=== PATIENT | male | born 1955 | race Caucasian/White ===

== ENCOUNTER → 2020-08-06 11:59 | Outpatient (CLI) | payer OTHER, SELFPAY ==
--- NOTE | ~2020-08-06 | XR_ITS ---
EXAMINATION: XR elbow RT min 3V DATE: 08/06/2020 12:46 INDICATION: Posterior right elbow pain, swelling and stiffness with limited range of motion TECHNIQUE: Anteroposterior, two oblique and lateral views of the right elbow were obtained. COMPARISON: None. FINDINGS: Alignment is normal. No fracture. Mild osteoarthritis at the right elbow with small marginal osteophy jorge and mild nonuniform joint space narrowing most prominent at the proximal radioulnar articulation. Small loose osteochondral body at the anterior recess of the joint space near the coronoid fossa. Ti ny enthesopathic ossicle along the lateral epicondyle. Soft tissues are otherwise unremarkable. IMPRESSION: 1. Mild osteoarthritis at the right elbow with small loose osteochondral body near the coronoid fossa . 2. Tiny enthesopathic ossicle at the lateral epicondylar origin of the common extensor tendon wad. Reviewed, dictated and finalized at location A. IMPRESSION: 1. Mild osteoarthritis at the right elbow with small loose osteochondral body n ear the coronoid fossa. 2. Tiny enthesopathic ossicle at the lateral epicondylar origin of the common e xtensor tendon wad.
== END ==
PROVIDERS: PCP Family Medicine; Visit Provider Family Medicine
DX: M19.021 Primary osteoarthritis, right elbow (principal)
CPT/HCPCS: 73080

== ENCOUNTER 2022-07-08 01:54 | Day surgery (SDC) | payer OTHER, SELFPAY ==
[2022-06-24 13:03] VITALS: BMI 32.5
[2022-07-08 06:16] VITALS: BP 122/85; PULSE 58; RESP 16; TEMP 36; O2SAT 98; BMI 32.3
[2022-07-08] MEDS: LACTATED RINGERS 1,000 ML 150 ML IV CONT (06:26)
--- NOTE | 2022-07-08 07:17 | WPDANESEPPF ---
Anes - Initial Pre Proc Eval Procedure: Operation Date: 07/08/22 07:30 Proposed Procedures p Colonoscopy - Power Mac MD Date/Time: 07/08/22 07:17 Surgeon: Power Mac MD Pre Op Diagnosis: hx colon polyps Patient Data Age: 66 Gender: M Height: 1.88 m Weight: 114.1 kg Last Vital Signs Temp 96.8 F L 07/08/22 06:16 Pulse 58 L 07/08/22 06:16 Resp 16 07/08/22 06:16 BP 122/85 07/08/22 06:16 Pulse Ox 98 07/08/22 06:16 O2 Del Method Room Air 07/08/22 06:16 Allergies Allergy/AdvReac Type Severity Reaction Status Date / Time No Known Allergies Allergy Mild Verified 07/08/22 06:15 Home Medications Medication Instructions Recorded Confirmed Type diclofenac sodium 1 % topical gel 2 g topical DAILY 08/06/20 07/08/22 History (Voltaren Arthritis Pain) loratadine 10 mg tablet (Claritin) 10 mg PO DAILY 08/06/20 07/08/22 History cholecalciferol (vitamin D3) 50 50 mcg PO BID 06/01/22 07/08/22 History mcg (2,000 unit) capsule naproxen 500 mg tablet 500 mg PO DAILY PRN pain 06/01/22 07/08/22 History tadalafil 20 mg tablet (Cialis) 20 mg PO DAILY PRN sexual activity 06/01/22 07/08/22 Rx #30 tabs atorvastatin 10 mg tablet (Lipitor) 10 mg PO QHS #90 tabs 06/07/22 07/08/22 Rx Patient hx anesthesia problems: none Family hx anesthesia problems: none Results Review: All pre-operative results and documents have been reviewed as part of the pre-operative evaluation. [facility] Past Medical History Medical History Arthritis of elbow, right, degenerative Chronic pain of both knees Chronic pain of left knee Dyslipidemia Environmental allergies Erectile dysfunction History of colon polyps Surgical History Surgical History History of bilateral inguinal hernia repair x 4 b/l - 1980s and History of mandibular surgery 1974 - correction of under bite History of umbilical hernia repair 1999 Social History Social History Smoking status: Never smoker Second hand tobacco smoke exposure: No Alcohol intake: current Drinks per week: 3 Substance use: current Substance use type: marijuana Other substance usage details: gummies Last use: sometimes Lack of Transportation: No Lack of Food: Never True Current Housing: I Have Housing Concerned About Future Housing: No Difficulty Paying Gas/Electric Bills: No Difficulty Paying for Meds: No Currently Unemployed: No Education: High School Diploma/GED Difficulty w/ Childcare or Family Care: No Living arrangements: with family Occupation/Education: retired Gender identity (if verbalized by the patient): Male Spiritual care concerns: No Anes - Eval Final PreProcedure Day of Procedure 07/08/22 07:17 Patient weight: obese Heart: regular rate and rhythm Lungs: clear to auscultation Airway: Mallampati scale class II Neurological: alert and oriented Last oral intake: >/= 8 hours ASA classification: II Emergent: no Anesthetic plan: proceed Anesthesia type and monitoring: general GIVS and standard monitoring Results Review: All pre-operative results and documents have been reviewed as part of the pre-operative evaluation. Informed Consent: The patient's anesthetic plan and its attendant risks and benefits were discussed with the patient/family/POA. Questions were solicited and answers provided to the satisfaction of the patient/family/POA.
--- NOTE | 2022-07-08 07:22 | PM.HPGS ---
History of Present Illness History of Present Illness Consent: Risks, benefits, and alternatives have been discussed and questions answered. Patient agrees to proceed with procedure. Chief complaint: hx colon polyps Narrative: Guero Dickerson is a 66 year old male Presents for screening colonoscopy. Patient's current weight appetite and bowel movements are normal. Patient denies abdominal pain. He has had no bleeding. Family history is noncontributory. Patient reports many years ago he had a polyp removed during a colonoscopy in [place]. Most recent colonoscopy 5 years ago was unremarkable. Review of Systems Review of Systems: Review of systems noncontributory. [facility] Past Medical History Medical History Arthritis of elbow, right, degenerative Chronic pain of both knees Chronic pain of left knee Dyslipidemia Environmental allergies Erectile dysfunction History of colon polyps Surgical History Surgical History History of bilateral inguinal hernia repair x 4 b/l - and History of mandibular surgery 1974 - correction of under bite History of umbilical hernia repair 1999 Social History Social History Smoking status: Never smoker Second hand tobacco smoke exposure: No Alcohol intake: current Drinks per week: 3 Substance use: current Substance use type: marijuana Other substance usage details: gummies Last use: sometimes Lack of Transportation: No Lack of Food: Never True Current Housing: I Have Housing Concerned About Future Housing: No Difficulty Paying Gas/Electric Bills: No Difficulty Paying for Meds: No Currently Unemployed: No Education: High School Diploma/GED Difficulty w/ Childcare or Family Care: No Living arrangements: with family Occupation/Education: retired Gender identity (if verbalized by the patient): Male Spiritual care concerns: No Meds Home Medications and Allergies Home Medications Medication Instructions Recorded Confirmed Type diclofenac sodium 1 % topical gel 2 g topical DAILY 08/06/20 07/08/22 History (Voltaren Arthritis Pain) loratadine 10 mg tablet (Claritin) 10 mg PO DAILY 08/06/20 07/08/22 History cholecalciferol (vitamin D3) 50 50 mcg PO BID 06/01/22 07/08/22 History mcg (2,000 unit) capsule naproxen 500 mg tablet 500 mg PO DAILY PRN pain 06/01/22 07/08/22 History tadalafil 20 mg tablet (Cialis) 20 mg PO DAILY PRN sexual activity 06/01/22 07/08/22 Rx #30 tabs atorvastatin 10 mg tablet (Lipitor) 10 mg PO QHS #90 tabs 06/07/22 07/08/22 Rx Allergies Allergy/AdvReac Type Severity Reaction Status Date / Time No Known Allergies Allergy Mild Verified 07/08/22 06:15 Vital Signs Vital Signs - 24 hr 07/08/22 06:16 Temperature 96.8 F L Pulse Rate 58 L Respiratory Rate 16 Blood Pressure 122/85 Pulse Oximetry 98 Oxygen Delivery Room Air Exam Narrative: Physical exam reveals patient to be alert. Vital signs stable. HEENT exam is unremarkable. Patient is anicteric. Lungs are clear to auscultation and percussion. Heart is without murmur or extra sounds. Abdomen bowel sounds are present soft nontender with no organomegaly. Digital external rectal exam is normal. Assessment and Plan Assessment and plan (1) Encounter for screening colonoscopy: Code(s): Z12.11 - Encounter for screening for malignant neoplasm of colon Status: Acute Assessment and Plan: Patient presents today for screening colonoscopy. He has very distant history of colon polyps. Further recommendations may be given after endoscopy.
[2022-07-08 07:52] VITALS: BP 126/86; PULSE 61; RESP 20; O2SAT 96
[2022-07-08 08:02] VITALS: BP 133/80; PULSE 56; RESP 18; O2SAT 99
[2022-07-08 08:12] VITALS: BP 133/87; PULSE 55; RESP 19; O2SAT 97
== END 2022-07-08 08:24 | disposition home or self-care (01) ==
PROVIDERS: PCP Family Medicine; Visit Provider Internal Medicine Gastroenterology
PROC: 0DJD8ZZ Inspection of Lower Intestinal Tract, Via Natural or Artificial Opening Endoscopic (ICD-10-PCS; CPT 45378; principal; 2022-07-08 07:30)
DX: Z12.11 Encounter for screening for malignant neoplasm of colon (principal); K63.5 Polyp of colon; K64.8 Other hemorrhoids; E78.5 Hyperlipidemia, unspecified; F12.90 Cannabis use, unspecified, uncomplicated
CPT/HCPCS: 45385; 88305; J2704; J7120

== ENCOUNTER 2023-05-10 10:59 | Outpatient (CLI) | payer OTHER, SELFPAY ==
[2023-05-10 13:12] LABS: Appearance Urine Clear (Clear); Bilirubin Urine Negative (Negative); Blood Urine Negative (Negative); Color Urine Yellow (Yellow); Glucose Urine UA Negative (Negative); Ketones Urine Negative (Negative); Leukocyte Esterase Ur Negative LEU/UL (Negative); Nitrate Urine Negative (Negative); Protein Urine Negative (Negative); Specific Grav Ur 1.022 (1.001-1.035); Urobilinogen Urine 0.2 mg/dL (<2.0)
[2023-05-10 13:23] LABS: Add Urine Microscopic? NO
== END 2023-05-10 11:00 | disposition home or self-care (01) ==
LOC: ANHGOSHLAB 11:01
PROVIDERS: PCP Family Medicine; Visit Provider Family Medicine
DX: R30.0 Dysuria (principal)
CPT/HCPCS: 81003

== ENCOUNTER 2023-05-10 11:44 | Emergency (ER) | payer OTHER, SELFPAY ==
--- NOTE | ~2023-05-10 | CT_ITS ---
EXAMINATION: CT abdomen pelvis w con DATE: 05/10/2023 18:01 INDICATION: RLQ abdominal pain TECHNIQUE: Computed tomography (CT) of the abdomen and pelvis was performed with 100 mL Omnipaque-350 intravenous contrast. Automated exposure control and iterative reconstruction technique were employe d. The dose-length product was 1357.97 mGy-cm. COMPARISON: None. FINDINGS: Lower thorax: Unremarkable Liver: Normal. Biliary/Gallbladder: Gallbladder is normal. No bile duct dilation. Pancreas: No mass or duct dilation. Spleen: 1.9 cm cyst/hemangioma Adrenals:No mass. Kidneys: Moderate right and mild left perinephric stranding. Multiple bilateral simple cysts. Subcent imeter left renal hypodensities too small to characterize but also likely represent cysts. Delayed ri ght nephrogram. Moderate right hydronephrosis. GI tract: No small or large bowel dilation. Normal appendix. Diverticulosis without diverticulitis. Mesentery/Peritoneum: No ascites, mass, or free air. Retroperitoneum: No mass. Atherosclerotic abdominal aortic and/or arterial calcifications. Pelvis: The urinary bladder is mostly empty. 5 mm distal right ureteral calcification at the entrance of the right UVJ. Soft Tissues: 2.9 x 4.4 cm fluid collection in in the moderate fat-containing left inguinal hernia. S mall uncomplicated fat-containing right inguinal and umbilical hernias. Bones: No acute osseous finding. IMPRESSION: 5 mm stone at the entrance of the right UVJ causing moderate obstructive uropathy. Moderate fat and fluid containing left inguinal hernia. Correlate for pain/tenderness. Reviewed, dictated and finalized at location K. CHOOL AIDE IMPRESSION: 5 mm stone at the entrance of the right UVJ causing moderate obstructive uropat hy. Moderate fat and fluid containing left inguinal hernia. Correlate for pain/tend erness.
[2023-05-10 11:52] VITALS: BP 196/100; PULSE 56; RESP 16; TEMP 36.2; O2SAT 99
--- NOTE | 2023-05-10 15:14 | ED.ABDPAIN ---
HPI - Abdominal Pain General Chief Complaint: Abdominal Pain <Cody Mcguire APRN - Last Filed: 05/10/23 18:57> Stated Complaint: right sided abdominal pain <Cody Mcguire APRN - Last Filed: 05/10/23 18:57> Time Seen by Provider: 05/10/23 15:14 <Cody Mcguire APRN - Last Filed: 05/10/23 18:57> Focused HPI: Mr. Dickerson is a 67-year-old male patient presenting to the clinic today with complaints of right lower quadrant pain and suprapubic pain that started this morning. GENERAL: Well-appearing, well-nourished, and in no acute distress. HEAD: Normocephalic, atraumatic. CHEST: Clear to auscultation. No respiratory distress. HEART: Regular rate and rhythm. NEURO: Alert and oriented x3. Patient screened in triage and initial orders placed. Additional care and disposition to be based upon diagnostic testing and treatment. <Cody Mcguire APRN - Last Filed: 05/10/23 18:57> History of Present Illness HPI narrative: Patient is a 67 year old male here with abdominal pain. he notes that the abdominal pain was initially in the suprapubic region and woke him up from sleep about a week ago. He notes that throughout the night the pain seemed to self resolve. He described it as feeling like someone is sitting on his bladder. The pain returned today in his suprapubic area. He then started noticing it moved into his right lower quadrant. He has been urinating frequently. He contact his primary care doctor today who sent him to the outpatient lab to have a urinalysis performed. The pain continued on that right side which prompted him to come to the emergency department for continued evaluation. He has had normal PSAs through screening with his primary care doctor. Additionally has had up-to-date colonoscopy is, last performed last year showing some polyps but otherwise unremarkable. The only medication that he is currently taking is a small dose of statin. He had a normal bowel movement today which was nonbloody. No associated fever or chills. <Lizbeth Kelley MD - Last Filed: 05/11/23 18:42> Related Data Home Medications: Home Medications Medication Instructions Recorded Confirmed diclofenac sodium 1 % topical gel 2 g topical DAILY 08/06/20 07/08/22 (Voltaren Arthritis Pain) loratadine 10 mg tablet (Claritin) 10 mg PO DAILY 08/06/20 07/08/22 cholecalciferol (vitamin D3) 50 50 mcg PO BID 06/01/22 07/08/22 mcg (2,000 unit) capsule naproxen 500 mg tablet 500 mg PO DAILY PRN pain 06/01/22 07/08/22 <Cody Mcguire APRN - Last Filed: 05/10/23 18:57> Allergies/Adverse Reactions: Allergies Allergy/AdvReac Type Severity Reaction Status Date / Time No Known Allergies Allergy Mild Verified 05/10/23 11:45 <Cody Mcguire APRN - Last Filed: 05/10/23 18:57> Review of Systems Review of Systems: All systems reviewed & are unremarkable except as noted in HPI and below <Lizbeth Kelley MD - Last Filed: 05/11/23 18:42> [facility] Past Medical History Medical History: Medical History Arthritis of elbow, right, degenerative Chronic pain of both knees Chronic pain of left knee Dyslipidemia Environmental allergies Erectile dysfunction History of colon polyps <Cody Mcguire APRN - Last Filed: 05/10/23 18:57> Surgical History Surgical History: Surgical History History of bilateral inguinal hernia repair x 4 b/l - 1980s and History of mandibular surgery 1974 - correction of under bite History of umbilical hernia repair 1999 <Cody Mcguire APRN - Last Filed: 05/10/23 18:57> Social History Social History: Social History Smoking status: Never smoker Second hand tobacco smoke exposure: No Alcohol intake: current Drinks per week: 3 Substance use: current S
[2023-05-10 15:49] LABS: Basophils Percent Auto 0.1 % (0.2-1.2); Eosinophils Percent Auto 0.3 % (0-4.4); Hematocrit 51.4 % (42.0-52.0); Hemoglobin 17.4 g/dL (14.0-18.0); Immature Granulocyte Absolute 0.03 K/mm3 (0.00-0.031); Immature Granulocyte Percent A 0.3 % (0-0.5); Lymphocytes Absolute Auto 0.71 K/mm3 (0.9-3.2); Lymphocytes Percent Auto 7.2 % (18.3-44.2); Mean Corpuscular HGB Conc 33.9 g/dl (32-36); Mean Corpuscular Hemoglobin 31.9 pg (26-34); Mean Corpuscular Volume 94.3 fl (80-100); Mean Platelet Volume 11.7 fl (7.4-10.4); Monocytes Absolute Auto 0.7 K/mm3 (0.1-0.6); Monocytes Percent Auto 7.4 % (2.6-8.5); Neutrophils Absolute Auto 8.4 K/mm3 (1.3-6.7); Neutrophils Percent Auto 84.7 % (45.5-73.1); Platelet Count Result 157 k/mm3 (150-375); Red Blood Count 5.45 M/mm3 (4.6-6.20); White Blood Count 9.9 K/mm3 (4.5-10.0)
[2023-05-10 16:02] LABS: Alanine Aminotransferase 35 U/L (6-50); Albumin Level 4.7 g/dL (3.5-5.1); Alkaline Phosphatase 79 U/L (38-126); Anion Gap 6 mmol/L (8-16); Aspartate Amino Transferase 31 U/L (17-59); Bilirubin,Total 1.1 mg/dL (0.2-1.3); Blood Urea Nitrogen 28 mg/dL (9-20); Calcium 9.6 mg/dL (8.4-10.2); Carbon Dioxide 29 mmol/L (22-30); Chloride 104 mmol/L (98-107); Estimated CRCL calculation 59 ml/min; Estimated Glomerular Filt Rate 47; Glucose 107 mg/dL (65-110); Lipase 78 U/L (23-300); Sodium 139 mmol/L (137-145)
[2023-05-10] MEDS: DICYCLOMINE HCL INJ 20 MG/2 ML VIAL IM (17:45)
[2023-05-10] MEDS: TAMSULOSIN HCL 0.4 MG CAPSULE PO (18:30)
== END 2023-05-10 18:42 | disposition home or self-care (01) ==
PROVIDERS: Nurse Practitioner Family; Emergency Provider Student in an Organized Health Care Education/Training Program; PCP Family Medicine
DX: N13.9 Obstructive and reflux uropathy, unspecified (principal); N20.1 Calculus of ureter; E78.5 Hyperlipidemia, unspecified; M19.021 Primary osteoarthritis, right elbow; Z86.010 Personal history of colon polyps; K40.90 Unilateral inguinal hernia, without obstruction or gangrene, not specified as recurrent
CPT/HCPCS: 36415; 74177; 80053; 81003; 83690; 85025; 96372; 99284; A9270; J0500; Q9967

== ENCOUNTER 2023-06-17 07:58 | Outpatient (CLI) | payer OTHER, SELFPAY ==
[2023-06-17 12:52] LABS: Alanine Aminotransferase 33 U/L (6-50); Albumin Level 4.7 g/dL (3.5-5.1); Alkaline Phosphatase 71 U/L (38-126); Anion Gap 9 mmol/L (4-12); Aspartate Amino Transferase 61 U/L (17-59); Bilirubin,Total 1.2 mg/dL (0.2-1.3); Blood Urea Nitrogen 23 mg/dL (9-20); Calcium 9.8 mg/dL (8.4-10.2); Carbon Dioxide 25 mmol/L (22-30); Chloride 106 mmol/L (98-107); Cholesterol 145 mg/dL (0-200); Estimated Glomerular Filt Rate 60; Glucose 88 mg/dL (65-110); HDL Direct 46 mg/dL; Potassium 3.7 mmol/L (3.4-5.0); Sodium 140 mmol/L (137-145); Triglycerides 102 mg/dL (<150)
[2023-06-17 13:02] LABS: LDL Cholesterol Direct 80 mg/dL
[2023-06-17 13:20] LABS: Prostate Specific Antigen 0.6 ng/mL (< OR = 4.0)
[2023-06-17 14:39] LABS: Vitamin D 25 Hydroxy 42.5 ng/mL
[2023-06-17 15:04] LABS: Hemoglobin A1C 5.5 % (<5.7)
== END 2023-06-17 07:59 | disposition home or self-care (01) ==
LOC: ANHGOSHLAB 08:00
PROVIDERS: PCP Family Medicine; Visit Provider Family Medicine
DX: R73.9 Hyperglycemia, unspecified (principal); I10 Essential (primary) hypertension; E78.5 Hyperlipidemia, unspecified; Z13.29 Encounter for screening for other suspected endocrine disorder; E55.9 Vitamin D deficiency, unspecified; Z12.5 Encounter for screening for malignant neoplasm of prostate; E53.8 Deficiency of other specified B group vitamins
CPT/HCPCS: 36415; 80053; 80061; 82306; 82607; 83036; 84153; 84443; G0103

== ENCOUNTER 2023-07-19 07:12 | Outpatient (CLI) | payer OTHER, SELFPAY ==
--- NOTE | ~2023-07-19 | MR_ITS ---
MRI of the left ankle Clinical history: Achilles tendinitis Technique: Coronal proton-density and proton-density fat-sat images, axial proton-density and proton- density fat-sat images, and sagittal proton-density and proton-density fat-sat images were acquired. Findings: Syndesmotic ligaments are intact. Anterior and posterior talofibular ligaments, and calcane ofibular ligament are intact. Deltoid ligament is intact. Medial flexor tendons, peroneal tendons, anterior extensor tendons are intact. There is diffuse moder ate Achilles tendinosis, with thickening and increased signal, most severe approximately 9.5 cm proxi mal to the distal Achilles insertion. No high-grade partial or full-thickness tendon tear seen. There is no osteochondral lesion of the talar dome. Bone marrow signals and joint spaces are intact. No joint effusion. Plantar fascia intact. No soft tissue mass or fluid collection evident. Impression: Moderate Achilles tendinosis, as detailed above. No partial or full-thickness tear seen. Reviewed, dictated and finalized at location . Impression: Moderate Achilles tendinosis, as detailed above. No partial or full-thickness t ear seen.
== END 2023-07-19 07:13 ==
LOC: MICIMG 07:13
PROVIDERS: PCP Family Medicine; Visit Provider Podiatrist Foot & Ankle Surgery
DX: M76.62 Achilles tendinitis, left leg (principal)
CPT/HCPCS: 73721

== ENCOUNTER 2023-07-19 10:21 | Outpatient (CLI) | payer OTHER, SELFPAY ==
--- NOTE | ~2023-07-19 | US_ITS ---
EXAMINATION: US retroperitoneal comp DATE: 07/19/2023 10:40 INDICATION: Right ureteral stone TECHNIQUE: Multiple ultrasound grayscale images of the kidneys were obtained. COMPARISON: None. FINDINGS: The right kidney measures 11.3 x 5.9 x 6.0 cm. The left kidney measures 11.7 x 5.7 x 6.4 cm. There ar e a couple anechoic right renal cysts measuring 3.4 cm and 3.5 cm in maximal diameters. The kidneys d emonstrate normal echogenicity. There is no hydronephrosis in either kidney. No stones identified. T he bladder is normal. IMPRESSION: 1. Right renal cyst. Otherwise normal kidneys without hydronephrosis. Reviewed, dictated and finalized at location B.
--- NOTE | ~2023-07-19 | XR_ITS ---
Supine and upright views of the abdomen Clinical history: Right ureteral stone Findings: Bowel gas pattern is nonspecific. No evidence for obstruction or free air. No abnormal mass lesion or calcification is seen. Osseous structures are intact. Impression: No significant abnormality is seen. Reviewed, dictated and finalized at [facility]. Impression: No significant abnormality is seen.
== END 2023-07-19 10:22 ==
LOC: MICIMG 10:22
PROVIDERS: PCP Urology; Visit Provider Urology
DX: N20.1 Calculus of ureter (principal); N28.1 Cyst of kidney, acquired
CPT/HCPCS: 74018; 76770

== ENCOUNTER 2024-04-23 10:55 | Outpatient (CLI) | payer OTHER, SELFPAY ==
--- NOTE | ~2024-04-23 | XR_ITS ---
EXAMINATION: XR finger 4th LT min 2V DATE: 04/23/2024 11:15 INDICATION: Left fourth finger dislocation with pain, swelling and discoloration TECHNIQUE: Dorsal palmar, lateral and 2 oblique views of the left fourth digit were obtained COMPARISON: None FINDINGS: Tiny calcific density at the ulnar side of the fourth proximal interphalangeal joint without evident donor site, nonetheless suspicious for a chip versus avulsion fracture fragment. No other lesions chandu picious for fracture. Alignment is otherwise normal. No other fractures identified. Minimal to mild o steoarthritis at many of the visualized metacarpophalangeal and interphalangeal joints. Soft tissue s welling about the fourth digit. IMPRESSION: 1. Tiny calcification at the lateral side of the fourth proximal interphalangeal joint suspicious for a chip versus collateral ligament avulsion fracture fragment although no donor site is appreciated. Reviewed, dictated and finalized at location A. LY DAY CARE WORKER IMPRESSION: 1. Tiny calcification at the lateral side of the fourth proximal interphalangea l joint suspicious for a chip versus collateral ligament avulsion fracture frag ment although no donor site is appreciated.
== END 2024-04-23 10:56 | disposition home or self-care (01) ==
PROVIDERS: PCP Family Medicine; Visit Provider Family Medicine
DX: M79.89 Other specified soft tissue disorders (principal); Z91.81 History of falling
CPT/HCPCS: 73140

== ENCOUNTER 2024-07-17 08:04 | Outpatient (CLI) | payer OTHER, SELFPAY ==
--- OUTSIDE RECORDS SUMMARY | 2024-07-17 08:07 | XMS_ITS | Clinical Summary ---
Author Organization [facility] Address [address] [place] [id number] Care Team Providers Care Paperhanger Assistant Name Role Phone Saadia Bella MD Primary Care Provider [phone] Allergies No known active allergies Medications CIALIS 2.5 mg tablet 04/01/2017 Active naproxen sodium 220 mg capsule Take by mouth. 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 Immunizations Immunization Administration Dates Next Due Influenza, Trivalent, IM (MDV) 01/05/2013 Surgical History Surgery Date Site/Laterality Comments OTHER SURGICAL HISTORY underbite: jaw surgery HERNIA REPAIR 1998 Hernia repair Medical History Medical History Date Comments Hx Other Medical 1975 underbite History of multiple allergies Al michael Family History Medical History Relation Name Comments Other Brother hepatitis; Coronary artery disease Father Zoe nary artery disease; Other Father Alive and well; Hyperlipidemia Other 2 Family histor y of Hyperlipidemia; Hypertension Other 3 Family history of Hypertension; Other Other 4 Family history of Transient ischemic attack; Other Other 5 Alive and well; Relation Name Status Comments Brother Father Alive Other 1 Alive Other 2 Other 3 Other 4 Other 5 Social History Tobacco Use Types Packs/Day Years Used Date Smoking Tobacco: Never Smokeless Tobacco: Never Alcohol Use Standard Drinks/Week Comments Yes 0 (1 standard drink = 0.6 oz pur e alcohol) Sex and Gender Information Value Date Recorded Sex Assigned at Not on file 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 Gender Identity Not on file Sexual Orientation Not on file Obstetrics History Last Filed Vital Signs Vital Sign Reading Time Taken Comments Blood Pressure 162/85 04/05/2017 1:05 PM MARINE PAINTER Pulse 73 04/05/2017 1:05 PM MARINE PAINTER Temperature - - Respiratory Rate - - Oxygen Saturation - - Inhaled Oxygen Concentration - - Weight 112.5 kg (248 lb) 04/05/2017 1:05 PM MARINE PAINTER Height 188 cm (6' 2 ) 04/05/2017 1:05 PM MARINE PAINTER Body Mass Index 31.84 04/05/2017 1:05 PM MARINE PAINTER Plan of Treatment Not on file Insurance [employer] [place] Care Teams Paperhanger Assistant Relationship Specialty [place] [id number] [address] [id number] PCP - General 10/21/11
--- OUTSIDE RECORDS SUMMARY | 2024-07-17 08:07 | XMS_ITS | Encounter Summary ---
Author Organization [facility] Address [address] [place] [address] Care Team Providers Care Rn New Graduate Name Role Phone Unavailable Primary Care Provider Unavailabl e Encounter Details Date Type Department Care Team (Late st Contact Info) Description 04/10/2020 Lab Requisition [facility] DermPath Lab [address] [facility] [place] [id number] Nicho Edwards MD [address] [place] [address] Social History Tobacco Use Types Packs/Day Years Used Date Smoking Tobacco: Never Assessed Sex and Gender Information Value Date Recorded Sex Assigned at Not on file Legal Sex Male 11:30 AM MARKETING DEVELOPMENT SPECIALIST Gender Identity Not on file Sexual Orientation Not on file documented as of this encounter Plan of Treatment Not on file documented as of this encounter Procedures Procedure Name Priority Date/Time Associated Diagnosis Comments DERMATOPATHOLOGY Routine 04/09/2020 3:33 AM MARKETING DEVELOPMENT SPECIALIST documented in this encounter Results * DERMATOPATHOLOGY (04/09/2020 3:33 AM MARKETING DEVELOPMENT SPECIALIST) Case Report Dermatopathology Report Case: [id number] Authorizing Provider: Nicho Edwards MD Collected: 04/09/2020 03:33 AM Ordering Location: [facility] DermPath Lab Received: 04/10/2020 12:23 PM Pathologist: Meaghan Alvarez MD Specimen: Skin, right nasal bulb 12:29 PM MARKETING DEVELOPMENT SPECIALIST DERMATOPATHOLOGY LABORATORY Final Diagnosis Specimen A. SKIN, right nasal bulb: ACTINIC KERATOSIS, PIGMENTED (L57.0) 12:29 PM MARKETING DEVELOPMENT SPECIALIST DERMATOPATHOLOGY LABORATORY Clinical History R/O HAK vs ISK vs lentigo. 12:29 PM [facility] DERMATOPATHOLOGY LABORATORY Gross Description Specimen A: Received is one formalin filled container labeled with the patient's name and designated right nasal bulb. The specimen consists of a shave biopsy measuring [id number]. Jar 0. 12:29 PM [facility] DERMATOPATHOLOGY LABORATORY Microscopic Description Specimen A. SKIN, right nasal bulb: There is alternating orthokeratosis and parakeratosis. Along the undersurface of the epidermis, there are buds of atypical keratinocytes in a disorderly arrangement. There is prominent pigmentation in some of the keratinocytes. 12:29 PM [facility] DERMATOPATHOLOGY LABORATORY Disclaimer An external and internal positive and negative controls are appropriate for the histochemical, immunohistochemical and immunofluorescence stain(s) in this case (if any), except where stated explicitly. The performance characteristics of the stain(s) cited in this report were developed and its performance characteristic determined by the Dermatopathology Laboratory at [facility], directed by Dr. Jag Alvarez. These tests need not be, and therefore are not, approved by the [place] Food and Drug Administration. The tests are used for clinical purposes. Billing Codes Specimen Charges Stain Charges 54601 1 12:29 PM [facility] DERMATOPATHOLOGY LABORATORY Embedded Images 12:29 PM [facility] DERMATOPATHOLOGY LABORATORY Pathology/Cytolo gy TISSUE SPECIMEN FROM SKIN / Unknown 04/09/2020 3:33 AM MARKETING DEVELOPMENT SPECIALIST 04/10/2020 12:23 PM MARKETING DEVELOPMENT SPECIALIST Nicho Edwards MD LAB - PATHOLOGY/CYTOLOGY ORD ERABLES Final Result DERMATOPATHOLOGY LABORATORY [facility] - Department of Dermatology [address] [place] [address], [facility] [phone] documented in this encounter Visit Diagnoses Not on filedocumented in this encounter
--- OUTSIDE RECORDS SUMMARY | 2024-07-17 08:07 | XMS_ITS | Referral Summary ---
Author Organization [facility] [address] Address [address] [place] [id number] Care Team Providers Care Client Experience Consultant Name Role Phone Saadia Bella MD Primary Care Provider [phone] Allergies No known active allergies Medications CIALIS 2.5 mg tablet 04/01/2017 Active naproxen sodium 220 mg capsule Take by mouth. 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 Gender Identity Not on file Sexual Orientation Not on file Last Filed Vital Signs Vital Sign Reading Time Taken Comments Blood Pressure 162/85 04/05/2017 1:05 PM 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 Pulse 73 04/05/2017 1:05 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
--- OUTSIDE RECORDS SUMMARY | 2024-07-17 08:07 | XMS_ITS | Clinical Summary ---
Author Organization [facility] Address [address] 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 This disclosure is being madepursuant to the Care Everywhere program and may not contain all information available regarding this patient. 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 Gender Identity Not on file Sexual Orientation Not on file Plan of Treatment Health Maintenance Due Date Last Done Comments COLOGUARD (AGES 45-75) - COL ON CA SCREENING 1955 COLON MONITORING 1955 COLONOSCOPY - COLON CA SCREENING 1955 CT COLONOGRAPHY - COLON CA SCREENING 1955 Colorectal Cancer Screening 1955 FIT - COLON CA SCREENING 1955 FLEX SIG - COLON CA SCREENING 1955 LIPID TESTING 1955 HEPATITIS C SCREENING 08/20/1973 DTAP/TDAP/TD VACCINES (1 - Tdap) 08/24/1974 PNEUMOCOCCAL VACCINE 50+ (1 of 1 - PCV) 08/24/2005 ZOSTER VACCINE (1 of 2) 08/24/2005 COVID-19 VACCINE ( - 2023-2 5 season) 2023 DEPRESSION SCREENING 03/07/2024 INFLUENZA VACCINE (Season Ended) 2024 Respiratory Syncytial Virus (RSV) Vaccine Pt: or over 60 yrs (1 - 1-dose 75+ series) 08/24/2030 HEPATITIS B VACCINE Aged Out No longe r eligible based on patient's age to complete this topic HIB VACCINE Aged Out No longer eligi ble based on patient's age to complete this topic HPV VACCINE Aged Out No longer eligi ble based on patient's age to complete this topic MENINGOCOCCAL (Group B) VACC INE SHARED DECISION-MAKING Aged Out No longer eligibl e based on patient's age to complete this topic MENINGOCOCCAL GROUPS A/C/Y/W VACCINE Aged Out No longer eligible b ased on patient's age to complete this topic Insurance JOSE ELIAS
[2024-07-17 13:12] LABS: Basophils Percent Auto 0.4 % (0.2-1.2); Eosinophils Absolute Auto 0.1 K/mm3 (0-0.3); Eosinophils Percent Auto 1.7 % (0-4.4); Hemoglobin 16.3 g/dL (14.0-18.0); Immature Granulocyte Absolute 0.01 K/mm3 (0.00-0.031); Immature Granulocyte Percent A 0.2 % (0-0.5); Lymphocytes Percent Auto 24.9 % (18.3-44.2); Mean Corpuscular HGB Conc 32.6 g/dl (32-36); Mean Corpuscular Hemoglobin 31.4 pg (26-34); Mean Corpuscular Volume 96.3 fl (80-100); Mean Platelet Volume 12.2 fl (7.4-10.4); Monocytes Absolute Auto 0.5 K/mm3 (0.1-0.6); Monocytes Percent Auto 9.4 % (2.6-8.5); Neutrophils Absolute Auto 3.1 K/mm3 (1.3-6.7); Neutrophils Percent Auto 63.4 % (45.5-73.1); Platelet Count Result 186 k/mm3 (150-375); Red Blood Count 5.19 M/mm3 (4.6-6.20); Red Cell Distribution Width 12.3 % (11.5-14.5); White Blood Count 4.8 K/mm3 (4.5-10.0)
[2024-07-17 14:14] LABS: Alanine Aminotransferase 32 U/L (6-50); Albumin Level 4.6 g/dL (3.5-5.1); Alkaline Phosphatase 70 U/L (38-126); Anion Gap 9 mmol/L (4-12); Aspartate Amino Transferase 49 U/L (17-59); Bilirubin,Total 1.2 mg/dL (0.2-1.3); Blood Urea Nitrogen 23 mg/dL (9-20); Calcium 9.3 mg/dL (8.4-10.2); Carbon Dioxide 24 mmol/L (22-30); Chloride 105 mmol/L (98-107); Cholesterol 159 mg/dL (0-200); Estimated Glomerular Filt Rate > 60; Glucose 77 mg/dL (65-110); HDL Direct 44 mg/dL; Sodium 138 mmol/L (137-145); Triglycerides 82 mg/dL (<150)
[2024-07-17 14:25] LABS: LDL Cholesterol Direct 79 mg/dL
[2024-07-17 14:51] LABS: Prostate Specific Antigen 0.5 ng/mL (< OR = 4.0)
[2024-07-17 21:39] LABS: Hemoglobin A1C 5.6 % (<5.7)
[2024-07-18 08:42] LABS: Mumps Virus IgG Antibody <9.00 AU/mL; Rubeola Measles IgG >300.00 AU/mL
== END 2024-07-17 08:05 | disposition home or self-care (01) ==
PROVIDERS: PCP Family Medicine; Visit Provider Family Medicine
DX: E78.5 Hyperlipidemia, unspecified (principal); Z12.5 Encounter for screening for malignant neoplasm of prostate; N52.9 Male erectile dysfunction, unspecified; R68.82 Decreased libido; R73.9 Hyperglycemia, unspecified; E53.8 Deficiency of other specified B group vitamins; E55.9 Vitamin D deficiency, unspecified; Z00.00 Encounter for general adult medical examination without abnormal findings; Z78.9 Other specified health status
CPT/HCPCS: 36415; 80053; 80061; 82306; 82607; 83036; 84153; 84402; 84403; 84443; 85025; 86735; 86762; 86765; G0103

== ENCOUNTER 2024-11-19 09:15 | Outpatient (CLI) | payer OTHER, SELFPAY ==
--- NOTE | ~2024-11-19 | XR_ITS ---
EXAM/ PROCEDURE: XR knee RT min 4V - 11/19/2024 9:34 CDT HISTORY: 69 years old Male with Pain in right knee x 1 week, fell on it last week COMPARISON: None available TECHNIQUE: Three view(s) FINDINGS/ IMPRESSION: There are no fractures or dislocations.Joint space narrowing, subchondral sclerosis, subchondral cyst formation and osteophyte formation, compatible with mild osteoarthritis. Reviewed, dictated and finalized at location N.
== END 2024-11-19 09:16 | disposition home or self-care (01) ==
LOC: GOSHIMG 09:16
PROVIDERS: PCP Family Medicine; Visit Provider Nurse Practitioner Family
DX: M25.561 Pain in right knee (principal)
CPT/HCPCS: 73564